=== PATIENT | female | born 1950 | race African-American/Black ===

== ENCOUNTER 2018-04-18 15:38 | Emergency (ER) | payer MEDICARE, BC ==
[~2018-04-18] VITALS: Ht 167.6 cm; Wt 70.0 kg
[2018-04-19] MEDS ORDERED: POLYETHYLENE GLYCOL 3350 (17GM) 1 DOSE PACK PO ONE (02:45)
[2018-04-19] MEDS ORDERED: NA PHOS,M-B/NA PHOS,DI-BA ENEMA 118ML PR ONE (04:15)
[2018-04-19 05:50] VITALS: BP 114/42
== END 2018-04-19 05:50 | disposition home or self-care (01) ==
LOC: ER 15:38
DX: T40.2X5A Adverse effect of other opioids, initial encounter (principal); K59.03 Drug induced constipation; I10 Essential (primary) hypertension; M79.673 Pain in unspecified foot; Y92.89 Other specified places as the place of occurrence of the external cause
CPT/HCPCS: 99283